=== PATIENT | male | born 1965 | race Caucasian/White ===

== ENCOUNTER 2016-09-20 10:29 | Emergency (ER) | payer SELFPAY ==
[~2016-09-20] VITALS: Ht 172.7 cm; Wt 85.0 kg
[2016-09-20 10:31] VITALS: BP 141/74; PULSE 88; RESP 12; TEMP 98.1; O2SAT 98
--- NOTE | 2016-09-20 11:36 | PD ---
HPI Chief Complaint: Skin Problem Time Seen by Provider: 11:35 Travel History International Travel<30 days: No Contact w/Intl Traveler<30days: No Traveled to known affect area: No History of Present Illness HPI 50-year-old male presents to the emergency Department with complaint of a spider bite to his right forearm since Monday. He did not see a spider or insect bite him. Denies paresthesias, loss of sensation, decreased range of motion, decreased strength to the affected extremity. Denies fever, chills, nausea, vomiting. Has not taken any medications or tried any treatments to alleviate his symptoms. No known aggravating or relieving factors. Allergies to Bactrim and another antibiotic that he doesn't know the name of. Says he is taking penicillin with no problems in the past. No other modifying factors or associated signs and symptoms. PFSH Past Medical History Influenza Vaccination: No Social History Alcohol Use: Yes (socially) Tobacco Use: Yes (1 ppd) Substance Use: No Allergies-Medications (Allergen,Severity, Reaction): Coded Allergies: Bactrim (Verified Allergy, Intermediate, rash, 09/20/16) Uncoded Allergies: ANTIBIOTIC (Allergy, Unknown, 09/20/16) Reported Meds & Prescriptions Reported Meds & Active Scripts Active Clindamycin (Clindamycin HCl) 150 Mg Cap 450 Mg PO Q6H 10 Days Ibuprofen 800 Mg Tab 800 Mg PO Q6HR PRN Review of Systems Except as stated in HPI: all other systems reviewed are Neg Physical Exam Narrative GENERAL: Well-nourished, well-developed male patient, in no acute distress; afebrile, nontoxic-appearing SKIN: There is an indurated area to the right forearm which measures about 1 cm in diameter. It is nonfluctuant and there is no pointing or drainage. There is a zone of inflammation around it but no lymphangitis. Right upper extremity supple and non-tense with 2+ radial pulse and sensory intact without erythema or edema. HEAD: Atraumatic. Normocephalic. EYES: Pupils equal and round. No scleral icterus. No injection or drainage. ENT: Mucosa pink and moist. Airway patent. NECK: Trachea midline. CARDIOVASCULAR: Regular rate. RESPIRATORY: No accessory muscle use. GASTROINTESTINAL: Flat. MUSCULOSKELETAL: No obvious deformities. No clubbing. No cyanosis. No edema. NEUROLOGICAL: Awake and alert. Oriented 3. No obvious cranial nerve deficits. Motor grossly within normal limits. Normal speech. PSYCHIATRIC: Appropriate mood and affect; insight and judgment normal. Data Data Last Documented VS Vital Signs Date Time Temp Pulse Resp B/P Pulse Ox O2 Delivery O2 Flow Rate FiO2 09/20/16 11:11 84 18 09/20/16 10:31 98.1 141/74 98 Room Air Orders Ibuprofen (Motrin) (09/20/16 11:45) MDM Medical Decision Making Medical Screen Exam Complete: Yes Emergency Medical Condition: Yes Medical Record Reviewed: Yes Differential Diagnosis Cellulitis, abscess, bug bite Narrative Course 50-year-old male is equal exam consistent with cellulitis to the right forearm. There is an indurated area that measures approximately 1 cm and it is nonfluctuant without pointing or drainage. Patient is allergic to Bactrim. He says he has taken penicillin in the past. He is allergic to another antibiotic but does not know the name of the. Patient says he is not allergic to clindamycin. Clindamycin and ibuprofen prescribed for home. Patient is medically cleared and stable for discharge. Discussed reasons to return to the emergency department. Instructed patient to follow up with primary care provider. Patient agrees with treatment plan. The patients vital signs are stable and the patient is stable for outpatient follow-up and treatment. Patient discharged home, stable and in no acute distress. Diagnosis Primary Impression: Right forearm cellulitis Referrals: Primary Care Physician Patient Instructions: Cellulitis (ED), General Instructions Departure Forms: Tests/Procedures, Work Release Enter return to work date: Sep 21, 2016 Additional Instructions: Complete full course of antibiotics Warm compresses to the affected area Keep area clean and dry Ibuprofen or Tylenol as directed and as needed for pain and inflammation Follow-up with primary care provider Return to emergency department immediately with worsening of symptoms Med/Other Pt SpecificInfo: Prescription(s) given Scripts Clindamycin 150 Mg [id number] Mg PO Q6H 10 Days Ref 0 Prov:Mallory Haney 09/20/16 Ibuprofen 800 Mg [id number] Mg PO Q6HR PRN (PAIN) #30 TAB Ref 0 Prov:Mallory Haney 09/20/16 Disposition: 01 DISCHARGE HOME Condition: Stable Mallory Haney Sep 20, 2016 11:35
[2016-09-20] MEDS ORDERED: IBUP800T23 PO (11:42)
[2016-09-20] MEDS ORDERED: CEPH-460 PO (11:42)
[2016-09-20] MEDS ORDERED: BACT800T5 PO (11:42)
[2016-09-20] MEDS ORDERED: IBUPROFEN 800 MG TAB PO ONE (11:45)
[2016-09-20] MEDS ORDERED: CLIN1CAP5 PO (11:46)
== END 2016-09-20 12:20 | disposition home or self-care (01) ==
LOC: NEPB 10:29
DX: L03.113 Cellulitis of right upper limb (principal); F17.210 Nicotine dependence, cigarettes, uncomplicated
CPT/HCPCS: 99283